=== PATIENT | female | born 1995 | race African-American/Black ===

== ENCOUNTER 2019-06-13 00:31 | Emergency (ER) | payer MEDICAID ==
[~2019-06-13] VITALS: Ht 165.1 cm; Wt 91.3 kg
[2019-06-13 00:35] VITALS: BP 120/62
--- NOTE | 2019-06-13 00:38 | NUR ---
TO LOBBY A/W BED AMBULATORY
--- NOTE | 2019-06-13 00:38 | NUR ---
24 Y/O FEMALE BIB SELF C/O LOWER ABD PAIN RADIATING TO HER LOWER BACK ON AND OFF FOR A WEEK. ABDOMEN SOFT AND ROUND. PAIN IS AN 8/10 ACUTE PAIN RADIATING TO THE LOWER BACK. DENIES CHANGES IN APPETITED. +N/V/D. ERMD MADE AWARE OF STATUS. SIDE RAILS X1. VSS. PMH: DENIES RX:DENIES NKDA
--- NOTE | 2019-06-13 01:41 | NUR ---
Dr. James examining patient.
[2019-06-13] MEDS ORDERED: ACETAMINOPHEN EXTRA STRENGTH 500 MG TAB PO ONE (01:45)
[2019-06-13 02:01] LABS: BASOPHILS % (AUTO) 0.3 % (0.0-2.0); EOSINOPHILS # (AUTO) 0.1 K/uL (0-0.4); EOSINOPHILS % (AUTO) 0.7 % (0.0-4.0); HEMATOCRIT 33.3 % (36-48); HEMOGLOBIN 10.8 g/dL (12.0-16.0); LYMPHOCYTES # (AUTO) 2.5 K/uL (2.5-16.5); LYMPHOCYTES % (AUTO) 27.4 % (20.5-51.1); MEAN CORPUSCULAR HEMOGLOBIN 28 pg (27-31); MEAN CORPUSCULAR HGB CONC 33 g/dL (33-37); MEAN CORPUSCULAR VOLUME 87.5 fL (80-94); MONOCYTES # (AUTO) 0.5 K/uL (0.8-1.0); MONOCYTES % (AUTO) 5.6 % (1.7-9.3); NEUTROPHILS # (AUTO) 6.1 K/uL (1.8-7.7); PLATELET COUNT (AUTO) 254 K/uL (140-450); RED CELL DISTRIBUTION WIDTH 14.5 % (11.6-13.7); WHITE BLOOD COUNT (AUTO) 9.2 K/uL (4.8-10.8)
--- NOTE | 2019-06-13 02:30 | NUR ---
PATIENT IS SITTING QUIETLY IN BED.
--- NOTE | 2019-06-13 03:52 | NUR ---
PATIENT IS RESTING WITH EYES CLOSED. WILL CONTINUE TO MONITOR.
--- NOTE | 2019-06-13 03:58 | NUR ---
ULTRASOUND AT BEDSIDE.
--- NOTE | 2019-06-13 03:58 | NUR ---
Ultrasound at bedside.
[2019-06-13 04:33] VITALS: BP 115/69
--- NOTE | 2019-06-13 04:33 | NUR ---
Patient discharged with v/s stable. Written and verbal after care instructions given and explained. Patient alert, oriented and verbalized understanding of instructions. Ambulatory with steady gait. All questions addressed prior to discharge. ID band removed. Patient advised to follow up with PMD. Rx of [employer] MULTI+DHA SOFTGEL given. Patient educated on indication of medication including possible reaction and side effects. Opportunity to ask questions provided and answered.
== END 2019-06-13 04:33 | disposition home or self-care (01) ==
LOC: MED 00:31
DX: O26.891 Other specified pregnancy related conditions, first trimester (principal); Z3A.01 Less than 8 weeks gestation of pregnancy
CPT/HCPCS: 36415; 76801; 81002; 81025; 84702; 85025; 86901; 99284; Q0092

== ENCOUNTER 2019-07-20 14:45 | Emergency (ER) | payer MEDICAID ==
[~2019-07-20] VITALS: Ht 165.1 cm; Wt 91.6 kg
[2019-07-20 14:56] VITALS: BP 135/76
--- NOTE | 2019-07-20 15:40 | NUR ---
24/F PRESENTS TO ED WITH FAMILY, C/O SORE THROAT, X2 DAYS. REPORTS COUGH AND CONGESTION, FEVER/CHILLS, BODYACHES, X3 DAYS. PT AWAKE AND ALERT, SKIN NORMAL COLOR WARM AND DR, RR EVEN AND UNLABORED. DENIES MED HX OR RX.
--- NOTE | 2019-07-20 15:40 | NUR ---
PT AMBULATED TO BED WITH FAMILY
[2019-07-20] MEDS ORDERED: KETOROLAC 60 MG/2 ML VIAL IM ONE (16:00)
[2019-07-20] MEDS ORDERED: DEXAMETHASONE 10 MG/ML VIAL IM ONE (16:00)
[2019-07-20 17:02] VITALS: BP 134/81
--- NOTE | 2019-07-20 17:02 | NUR ---
Patient discharged with v/s stable. Written and verbal after care instructions given and explained. Patient alert, oriented and verbalized understanding of instructions. Ambulatory with steady gait. All questions addressed prior to discharge. ID band removed. Patient advised to follow up with PMD. Rx of AUGMENTIN, CEPACOL, IBUPROFEN given. Patient educated on indication of medication including possible reaction and side effects. Opportunity to ask questions provided and answered.
== END 2019-07-20 17:02 | disposition home or self-care (01) ==
LOC: MED 14:45
DX: H66.92 Otitis media, unspecified, left ear (principal); J06.9 Acute upper respiratory infection, unspecified; J02.9 Acute pharyngitis, unspecified
CPT/HCPCS: 96372; 99283; J1100; J1885

== ENCOUNTER 2020-02-15 21:10 | Emergency (ER) | payer MEDICAID, OTHER ==
[~2020-02-15] VITALS: Ht 167.6 cm; Wt 85.7 kg
[2020-02-15 21:30] VITALS: BP 140/91
[2020-02-15] MEDS ORDERED: predniSONE 20 MG TAB PO ONE (22:15)
[2020-02-15] MEDS ORDERED: AMOXIL/CLAVULANATE 875/125 MG 1 TAB PO ONE (22:15)
[2020-02-15] MEDS ORDERED: predniSONE 20 MG TAB ONE (22:37)
[2020-02-15 22:45] VITALS: BP 140/91
--- NOTE | 2020-02-15 22:45 | NUR ---
25 Y/O F PRESENTS TO ED C/O THROAT AND EAR PAIN. PT STATES THAT SHE ALWAYS HAS RECURRING TONSILLITIS. PER PT, SUPPOSED TO TAKE TONSILS OUT BUT HAVEN'T GOTTEN A CHANCE. MHX: RECURRING TONSILLITIS ALLERGIES: DM COUGH SYRUP
--- NOTE | 2020-02-15 22:46 | NUR ---
Patient discharged with v/s stable. Written and verbal after care instructions given and explained. Patient alert, oriented and verbalized understanding of instructions. Ambulatory with steady gait. All questions addressed prior to discharge. ID band removed. Patient advised to follow up with PMD. Rx of AUGMENTIN AND IBUPROFEN given. Patient educated on indication of medication including possible reaction and side effects. Opportunity to ask questions provided and answered.
== END 2020-02-15 22:40 | disposition home or self-care (01) ==
LOC: MED 21:10
DX: J03.90 Acute tonsillitis, unspecified (principal)
CPT/HCPCS: 99283; J7512

== ENCOUNTER 2020-05-04 08:39 | Emergency (ER) | payer OTHER ==
[~2020-05-04] VITALS: Ht 167.6 cm; Wt 83.9 kg
[2020-05-04 08:43] VITALS: BP 116/66
--- NOTE | 2020-05-04 08:50 | NUR ---
PT AMBULATED TO BED 3
--- NOTE | 2020-05-04 09:04 | NUR ---
25 YEAR OLD FEMALE COMPLAINS OF LOWER ABDOMINAL PAIN THAT RADIATES TO LOWER BACK SINCE LAST NIGHT. PT DENIES NAUSEA, VOMITTING, OR DIARRHEA. PT STATES PAIN IS ON/OFF, CURRENTLY NO PAIN AT THIS TIME. PT AOX4, BREATHING EVEN AND UNLABORED, SKIN WARM AND DRY. BED IN LOWEST POSITION, LOCKED, BED RAIL UPX1. PMH - ASTHMA ALLERGIES - COUGH SYRUP DM
[2020-05-04 09:31] LABS: BASOPHILS % (AUTO) 0.4 % (0.0-2.0); EOSINOPHILS # (AUTO) 0.1 K/uL (0-0.4); HEMATOCRIT 30.7 % (36-48); HEMOGLOBIN 10.3 g/dL (12.0-16.0); MEAN CORPUSCULAR HEMOGLOBIN 29 pg (27-31); MEAN CORPUSCULAR HGB CONC 34 g/dL (33-37); MEAN CORPUSCULAR VOLUME 86.8 fL (80-94); MONOCYTES # (AUTO) 0.3 K/uL (0.8-1.0); MONOCYTES % (AUTO) 4.9 % (1.7-9.3); NEUTROPHILS # (AUTO) 4.6 K/uL (1.8-7.7); NEUTROPHILS % (AUTO) 65.7 % (42.2-75.2); PLATELET COUNT (AUTO) 193 K/uL (140-450); RED BLOOD CELL COUNT(AUTO) 3.53 MIL/uL (4.20-5.40); RED CELL DISTRIBUTION WIDTH 14.3 % (11.6-13.7); WHITE BLOOD COUNT (AUTO) 7.1 K/uL (4.8-10.8)
--- NOTE | 2020-05-04 09:35 | NUR ---
ULTRASOUND AT BEDSIDE
[2020-05-04 10:53] VITALS: BP 116/72
--- NOTE | 2020-05-04 10:53 | NUR ---
Patient discharged with v/s stable. Written and verbal after care instructions about abdominal pain during given and explained. Patient verbalized understanding. Ambulatory with steady gait. All questions addressed prior to discharge. Advised to follow up with PMD.
== END 2020-05-04 10:53 | disposition home or self-care (01) ==
LOC: MED 08:39
DX: O26.891 Other specified pregnancy related conditions, first trimester (principal); O20.9 Hemorrhage in early pregnancy, unspecified; J45.909 Unspecified asthma, uncomplicated; Z3A.01 Less than 8 weeks gestation of pregnancy
CPT/HCPCS: 36415; 76801; 81002; 81025; 84702; 85025; 86900; 86901; 99284; Q0092

== ENCOUNTER 2020-05-13 19:22 | Emergency (ER) | payer OTHER ==
[~2020-05-13] VITALS: Ht 167.6 cm; Wt 82.6 kg
[2020-05-13 19:34] VITALS: BP 119/65
--- NOTE | 2020-05-13 19:38 | NUR ---
To ED bed 12.
[2020-05-13 19:40] VITALS: BP 119/65
[2020-05-13] MEDS ORDERED: NACL 0.9% 1,000 ML IV ONE (19:40)
[2020-05-13] MEDS ORDERED: ONDANSETRON 4 MG/2 ML VIAL IVP ONE (19:40)
--- NOTE | 2020-05-13 19:40 | NUR ---
G5 T2 L2 ABOUT 8 WEEKS . LMP 03/23/20 25 Y/O FEMALE PRESENTED TO ED C/O NAUSEA & VOMITTING X 2 DAYS . PT STATES SHE HAS BEEN UNABLE TO HOLD ANYTHING DOWN FOR PAST 2 DAYS. + BODY ACHES. A/O X 4 . PT ABD ROUND , SOFT AND NON TENDER. RR EVEN AND UNLABORED. SKIN WARM AND INTACT. CAP REFIL < 3 SEC. PT DENIES FEVER, CHILLS , DIARRHEA AT THIS TIME. PT STATES SHE HAS A OBGYN AND HAS BEEN RECEIVING CARE AT THIS TIME. PT RESTING IN BED, LOCKED AND IN LOWEST POSITION, HOB ELEVATED, SIDE RAIL X1.VSS. ERMD MADE AWARE OF PT STATUS. NO ACUTE DISTRESS NOTED. pmhx: asthma, bronchitis allx: robitussin
--- NOTE | 2020-05-13 19:45 | NUR ---
BLOOD LABS COLLECTED AND HANDED TO LAB.
--- NOTE | 2020-05-13 19:54 | NUR ---
ULTRASOUND AT BEDSIDE.
--- NOTE | 2020-05-13 19:55 | NUR ---
CALLED LAB FOR P/U OF URINE SAMPLE AT THIS TIME.
[2020-05-13 19:57] LABS: BASOPHILS % (AUTO) 0.3 % (0.0-2.0); EOSINOPHILS % (AUTO) 0.3 % (0.0-4.0); HEMATOCRIT 32.9 % (36-48); HEMOGLOBIN 11.2 g/dL (12.0-16.0); LYMPHOCYTES % (AUTO) 20.6 % (20.5-51.1); MEAN CORPUSCULAR HEMOGLOBIN 30 pg (27-31); MEAN CORPUSCULAR HGB CONC 34 g/dL (33-37); MEAN CORPUSCULAR VOLUME 86.8 fL (80-94); MONOCYTES # (AUTO) 0.4 K/uL (0.8-1.0); MONOCYTES % (AUTO) 4.1 % (1.7-9.3); NEUTROPHILS # (AUTO) 7.4 K/uL (1.8-7.7); NEUTROPHILS % (AUTO) 74.7 % (42.2-75.2); PLATELET COUNT (AUTO) 244 K/uL (140-450); RED BLOOD CELL COUNT(AUTO) 3.79 MIL/uL (4.20-5.40); RED CELL DISTRIBUTION WIDTH 14.4 % (11.6-13.7); WHITE BLOOD COUNT (AUTO) 9.8 K/uL (4.8-10.8)
[2020-05-13 20:13] LABS: APPEARANCE,URINE CLEAR (CLEAR); BILIRUBIN,URINE 1+ (NEGATIVE); BLOOD, URINE NEGATIVE (NEGATIVE); COLOR,URINE YELLOW (YELLOW); LEUKOCYTE ESTERASE ,URINE NEGATIVE (NEGATIVE); NITRITE, URINE NEGATIVE (NEGATIVE); UGLUCOSE NEGATIVE (NEGATIVE)
[2020-05-13 20:14] LABS: ANION GAP 14.7 (8-16); CARBON DIOXIDE 24.3 mmol/L (21-32); CREATININE 0.6 mg/dL (0.6-1.3)
--- NOTE | 2020-05-13 20:37 | NUR ---
PT STATES SHE IS FEELING BETTER "NOT WEAK." ERMD MADE AWARE OF PT STATUS.
== END 2020-05-13 21:12 | disposition home or self-care (01) ==
LOC: MED 19:22
DX: O21.0 Mild hyperemesis gravidarum (principal); J45.909 Unspecified asthma, uncomplicated; Z88.8 Allergy status to other drugs, medicaments and biological substances; Z3A.08 8 weeks gestation of pregnancy
CPT/HCPCS: 36415; 76801; 80048; 81003; 84702; 85025; 86900; 86901; 96361; 96374; 99284; J2405; J7030